=== PATIENT | female | born 1980 | race Caucasian/White ===

== ENCOUNTER 2020-03-31 19:58 | Emergency (ER) | payer MEDICAID ==
[~2020-03-31] VITALS: Ht 160 cm; Wt 50.0 kg
[2020-03-31] MEDS ORDERED: BUPR8SUB PO (20:21)
[2020-03-31] MEDS ORDERED: CLON0.2T PO (20:21)
[2020-03-31] MEDS ORDERED: GABA600T4 PO (20:21)
[2020-03-31 21:38] LABS: HEMATOCRIT 35.4 % (36.0-47.0); HEMOGLOBIN 11.5 g/dl (12.0-15.5); MEAN CORPUSCULAR HEMOGLOBIN 30.3 pg (27.0-33.0); MEAN CORPUSCULAR HGB CONC 32.5 g/dl (32.0-36.5); MEAN CORPUSCULAR VOLUME 93.2 fl (80.0-96.0); PLATELET COUNT, AUTOMATED 264 10^3/uL (150-450); WHITE BLOOD COUNT 5.6 10^3/uL (4.0-10.0)
[2020-03-31 21:56] LABS: HCG, SERUM QUALITATIVE NEGATIVE (NEGATIVE)
[2020-03-31 22:16] LABS: ACETAMINOPHEN LEVEL < 2.0 UG/ML (10.0-30.0); ALT/SGPT 21 U/L (12-78); BILIRUBIN,DIRECT < 0.1 MG/DL (0.0-0.2); BILIRUBIN,TOTAL 0.1 MG/DL (0.2-1.0); BLOOD UREA NITROGEN 6 MG/DL (7-18); CALCIUM LEVEL 8.4 MG/DL (8.5-10.1); CARBON DIOXIDE LEVEL 29 MEQ/L (21-32); CHLORIDE LEVEL 108 MEQ/L (98-107); CPK CREATINE PHOSPHOKINASE 54 U/L (26-192); CREATININE FOR GFR 0.43 MG/DL (0.55-1.30); ETHYL ALCOHOL (ETHANOL) < 0.003 % (0.000-0.010); GLOMERULAR FILTRATION RATE > 60.0 (>60); GLUCOSE, FASTING 77 MG/DL (70-100); POTASSIUM SERUM 3.6 MEQ/L (3.5-5.1); SALICYLATE LEVEL < 1.7 MG/DL (5.0-30.0); SODIUM LEVEL 141 MEQ/L (136-145)
[2020-04-01 03:06] LABS: AMPHETAMINES LEVEL URINE POSITIVE (NEGATIVE); BARBITURATES URINE NEGATIVE (NEGATIVE); BENZODIAZEPINES URINE NEGATIVE (NEGATIVE); CANNABINOIDS URINE POSITIVE (NEGATIVE); COCAINE METABOLITE URINE NEGATIVE (NEGATIVE); METHADONE URINE NEGATIVE (NEGATIVE); OPIATES URINE NEGATIVE (NEGATIVE); PHENCYCLIDINE URINE NEGATIVE (NEGATIVE)
[2020-04-01] MEDS ORDERED: GABAPENTIN 300 MG CAP PO ONE (10:00)
[2020-04-01] MEDS ORDERED: cloNIDine 0.2 MG TAB PO ONE (10:00)
[2020-04-01 10:33] VITALS: BP 117/75
[2020-04-01] MEDS ORDERED: BUPRENORPHINE/NALOXONE 8-2MG SUBLINGUAL TABLET(SUBOXONE) SL SCH (10:45)
[2020-04-01 16:31] LABS: RSV AMPLIFICATION NEGATIVE (NEGATIVE)
[2020-04-01] MEDS ORDERED: QUET400T PO (19:37)
[2020-04-02 01:45] VITALS: BP 115/60
[2020-04-02] MEDS ORDERED: BUPRENORPHINE/NALOXONE 8-2MG SUBLINGUAL TABLET(SUBOXONE) SL SCH (09:00)
--- NOTE | 2020-04-03 21:21 | ECGEPIP ---
[facility] - ED Test Date: 2020-04-01 Pat Name: MARY SUE Department: Room: - Gender: Female Digital Manager: lr : 1980 Requested By: Héctor Shields Order Number: [id number] Reading MD: Héctor Trujillo Measurements Intervals [place] Rate: 82 P: 66 VA: 134 QRS: 76 QRSD: 83 T: 72 QT: 352 QTc: 413 Interpretive Statements SINUS RHYTHM POOR R WAVE PROGRESSION NO PRIORS FOR COMPARISON Electronically Signed on 04-03-2020 21:20:53 EST by Héctor Trujillo
== END 2020-04-02 01:57 ==
LOC: M ED 19:58
DX: R45.851 Suicidal ideations (principal); F41.9 Anxiety disorder, unspecified; F32.9 Major depressive disorder, single episode, unspecified; Z79.899 Other long term (current) drug therapy; Z88.1 Allergy status to other antibiotic agents; Z88.2 Allergy status to sulfonamides
CPT/HCPCS: 36415; 80048; 80076; 80307; 82550; 84443; 84703; 85027; 87631; 93005; 99284; G0480